=== PATIENT | female | born 1985 | race American Indian/Alaskan Native ===

== ENCOUNTER 2022-02-17 07:15 | Inpatient (IN) | payer OTHER ==
[2022-02-17] MEDS ORDERED: LIDOCAINE (2%) 20 MG/1 ML VIAL 20 ML MDV INFILTRATI ONE (07:23)
[2022-02-17] MEDS ORDERED: fentaNYL 100 MCG/2 ML INJ IV SCH (07:30)
[2022-02-17] MEDS ORDERED: LACTATED RINGERS 1,000 ML IV SCH (08:00)
[2022-02-17] MEDS ORDERED: LIDOCAINE (2%) 20 MG/1 ML VIAL 20 ML MDV INFILTRATI SCH (08:00)
[2022-02-17] MEDS ORDERED: ACETAMINOPHEN 325 MG TAB PO PRN (08:03)
--- NOTE | 2022-02-17 08:08 | History and Physical Report ---
History of Present Illness Date of examination: 02/17/22 Date of admission: 02/17/22 07:15 Chief complaint: contractions History of present illness: Pt is a 36 year old OBDULIO 02/19/22 at 39w5d who presents with contractions for two hours, complete dilation and bulging bag of membranes. She reports having care in [facility] that has been uncomplicated but her records are not available for review. Her GBS status is unknown. Past History Past Medical History: no pertinent history Past Surgical History: no surgical history Family/Genetic History: none Social history: no significant social history - Obstetrical History Expected Date of Delivery: 02/19/22 Actual Gestation: 39 Week(s) 5 Day(s) : 3 Para: 2 Hx # Term Pregnancies: 1 Number of Pregnancies: 1 Spontaneous Abortions: 0 Induced : 0 Number of Living Children: 2 Medications and Allergies Allergies Allergy/AdvReac Type Severity Reaction Status Date / Time ibuprofen [From Motrin] Allergy Hives Verified 02/17/22 07:39 naproxen Allergy Itching Verified 02/17/22 07:39 acetaminophen [From Tylenol] AdvReac Hives Verified 02/17/22 07:39 Active Meds: Active Medications Butorphanol Tartrate (Butorphanol 2 Mg/1 Ml Inj) 1 mg IV Q2H PRN PRN Reason: Pain, Moderate(4-6) LABOR PAIN Carboprost Tromethamine (Carboprost Tromethamine 250 Mcg/1 Ml Inj) 250 mcg IM ONCE PRN PRN Reason: Uterine Bleeding Ephedrine Sulfate (Ephedrine Sulfate 50 Mg/1 Ml Inj) 10 mg IV Q2M PRN PRN Reason: Hypotension Fentanyl (Fentanyl 100 Mcg/2 Ml Inj) 100 mcg IV ONCE ONE Stop: 02/17/22 07:42 Fentanyl (Fentanyl 100 Mcg/2 Ml Inj) 100 mcg IV Q2H PRN PRN Reason: Pain,Severe (7-10) LABOR PAIN Oxytocin/Sodium Chloride (Pitocin/Ns 30 Unit/500ml) 30 units in 500 mls @ 2 mls/hr IV TITR YASMINE; Protocol Lactated Ringer's (Lactated Ringers) 1,000 mls @ 125 mls/hr IV DIRECT YASMINE Oxytocin/Sodium Chloride (Pitocin/Ns 30 Unit/500ml) 30 units in 500 mls @ 40 mls/hr IV TITR YASMINE; Protocol Lidocaine (Lidocaine (2%) 20 Mg/1 Ml Vial 20 Ml Mdv) 20 ml INFILTRATI ONCE ONE Stop: 02/17/22 08:04 Loperamide HCl (Loperamide 2 Mg Cap) 2 mg PO ONCE PRN PRN Reason: give with Hemabate Methylergonovine Maleate (Methylergonovine Maleate 0.2 Mg/Ml Vial) 0.2 mg IM ONCE PRN PRN Reason: Uterine Bleeding Mineral Oil (Mineral Oil 30 Ml Oral Liqd) 30 ml PO QHS PRN PRN Reason: Constipation Misoprostol (Misoprostol 200 Mcg Tab) 800 mcg OH ONCE PRN PRN Reason: Uterine Bleeding Naloxone HCl (Naloxone 0.4 Mg/1 Ml Inj) 0.1 mg IV Q2MIN PRN PRN Reason: Res Rate </= 8 or 02 SAT < 92% Ondansetron HCl (Ondansetron 4 Mg/2 Ml Inj) 4 mg IV Q8H PRN PRN Reason: Nausea And Vomiting Oxytocin (Oxytocin 10 Unit/1 Ml Inj) 10 unit IM ONCE PRN PRN Reason: Uterine Bleeding Terbutaline Sulfate (Terbutaline 1 Mg/1 Ml Inj) 0.25 mg SUB-Q ONCE PRN PRN Reason: Hyperstimulation/Hypertonicity Review of Systems All systems: negative - Vital Signs Vital signs: Vital Signs Pulse BP 80 120/76 02/17/22 07:34 02/17/22 07:34 Temp Pulse Resp BP Pulse Ox 96 H 122/76 02/17/22 08:04 02/17/22 08:04 - Physical Exam Breasts: Positive: deferred Abdomen: Positive: soft (gravid ) Uterus: Positive: enlarged (gravid ) Results All other labs normal. Assessment and Plan A: IUP at 39w5d Second Stage Labor No Care in [place], records unavailable GBS unknown P: Admit to labor and delivery Routine care Closely monitor maternal and status
--- NOTE | 2022-02-17 08:19 | Procedure Note ---
OB Delivery Note - Delivery Date of Delivery: 02/17/22 Surgeon: CELESTE QUEEN Estimated blood loss: other (400 mL) - Vaginal Delivery presentation: vertex Delivery position: OA Intrapartum events: precipitous labor- <3hr Delivery induction: none Delivery monitor: none Route of delivery: Delivery placenta: spontaneous Episiotomy: none Delivery laceration: 2nd degree (repaired with 2-0 Vicryl ) Delivery repair: vicryl Anesthesia: local Delivery comments: When composition tile layer provider en route, pt delivered viable female via spontaneous vaginal delivery under no anesthesia. bulb suctioned at delivery, cord clamped and cut and handed to NICU staff in attendance. Cord blood collected by Lacey Bae CNM. When provider arrived, placenta was delivered. Vagina and perineum explored. Second degree perineal laceration repaired with 2-0 Vicryl in a standard fashion under local anesthesia. Vaginal prolapse noted. Bladder drained of 100 mL urine. EBL 400 mL. - A at 1 minute: 8 at 5 minutes: 9 Infant Gender: Female (3400g (7lb 8oz) @ 0715 am)
[2022-02-17] MEDS ORDERED: TERBUTALINE 1 MG/1 ML INJ SUB-Q PRN (08:30)
[2022-02-17] MEDS ORDERED: ePHEDrine SULFATE 50 MG/1 ML INJ IV PRN (08:30)
[2022-02-17] MEDS ORDERED: CARBOPROST TROMETHAMINE 250 MCG/1 ML INJ IM PRN (08:30)
[2022-02-17] MEDS ORDERED: BUTORPHANOL 2 MG/1 ML INJ IV PRN (08:30)
[2022-02-17] MEDS ORDERED: ONDANSETRON 4 MG/2 ML INJ IV PRN ×2 (08:30→12:18)
[2022-02-17] MEDS ORDERED: OXYTOCIN DRIP 30 UNITS/500 ML BAG IV SCH ×2 (08:30→09:00)
[2022-02-17] MEDS ORDERED: NALOXONE 0.4 MG/1 ML INJ IV PRN (08:30)
[2022-02-17] MEDS ORDERED: OXYTOCIN 10 UNIT/1 ML INJ IM PRN (08:30)
[2022-02-17] MEDS ORDERED: miSOPROStol 200 MCG TAB PR PRN (09:00)
[2022-02-17] MEDS ORDERED: LOPERAMIDE 2 MG CAP PO PRN (09:00)
[2022-02-17] MEDS ORDERED: METHYLERGONOVINE MALEATE 0.2 MG/ML VIAL IM PRN (09:00)
[2022-02-17] MEDS ORDERED: MINERAL OIL 30 ML ORAL LIQD PO PRN (09:00)
[2022-02-17] MEDS ORDERED: fentaNYL 100 MCG/2 ML INJ IV PRN (10:00)
[2022-02-17] MEDS ORDERED: BENZOCAINE/MENTHOL 20/0.5% TOP SPRAY 56 GM TP PRN (12:18)
[2022-02-17] MEDS ORDERED: diphenhydrAMINE 25 MG CAP PO PRN (12:18)
[2022-02-17] MEDS ORDERED: MAGNESIUM HYDROXIDE (MOM) ORAL LIQD UDC PO PRN (12:18)
[2022-02-17] MEDS ORDERED: PROMETHAZINE 25 MG RECT SUPP PR PRN (12:18)
[2022-02-17] MEDS ORDERED: PROMETHAZINE 25 MG TAB PO PRN (12:18)
[2022-02-17] MEDS ORDERED: LANOLIN/ZINC/DIMETHICONE (LANSINOH) 7 GM TP PRN ×2 (12:18)
[2022-02-17 13:12] LABS: Hematocrit 35.6 % (30.3-42.9); Hemoglobin 11.8 gm/dl (10.1-14.3); Mean Corpuscular HGB Conc 33 % (30-34); Mean Corpuscular Volume 94 fl (79-97); Platelet Count 171 K/mm3 (140-440); Red Blood Count 3.77 M/mm3 (3.65-5.03); Red Cell Distribution Width 14.2 % (13.2-15.2)
[2022-02-17] MEDS: oxyCODONE 5 MG TAB PO PRN ×2 (13:29→21:01)
[2022-02-17] MEDS: DOCUSATE SODIUM 100 MG CAP PO SCH ×2 (14:06→21:02)
[2022-02-17 14:13] LABS: Hepatitis C Virus Antibody Non-Reactive (NonReactive)
[2022-02-17 18:32] LABS: Basophils % (Manual) 0 % (0.0-1.8); Eosinophils % (Manual) 0 % (0.0-4.3); Monocytes % (Manual) 0 % (0.0-7.3); RBC Morphology Normal; Total Cells Counted 100
[2022-02-17 18:33] LABS: Platelet Estimate Consistent w Auto
[2022-02-17] MEDS: WITCH HAZEL/ GLYCERIN PAD TP PRN (21:06)
[2022-02-17 21:18] LABS: Hemoglobin 10.9 gm/dl (10.1-14.3)
[2022-02-18] MEDS: oxyCODONE 5 MG TAB PO PRN (00:37)
[2022-02-18] MEDS ORDERED: TETANUS,DIPH,PERTUSS(ACELL) VACCINE 0.5 ML SYRINGE IM ONE (08:23)
[2022-02-18] MEDS ORDERED: MEASLES, MUMPS & RUBELLA 12,500 UNIT/0.5 ML VACCINE SUB-Q ONE (08:23)
--- NOTE | 2022-02-18 08:26 | Progress Note ---
Assessment and Plan - Patient Problems (1) Vaginal delivery Current Visit: Yes Status: Acute Plan to address problem: The patient is doing well Discharge home (2) Active labor at term Current Visit: Yes Status: Acute Subjective - Subjective Date of service: 02/18/22 Interval history: The patient is without any significant complaints. She reports improvement in her pain management. Patient reports: appetite normal, voiding normally, pain well controlled [place]: doing well Objective - Vital Signs Latest vital signs: Vital Signs Temp Pulse Resp BP BP Pulse Ox Pulse Ox 02/18/22 00:11 98.1 F 60 20 126/59 96 02/17/22 22:00 99 02/17/22 19:53 98.3 F 72 20 101/54 99 02/17/22 18:24 98.3 F 67 18 112/65 100 02/17/22 13:29 16 02/17/22 11:50 97.9 F 66 16 117/59 97 99 02/17/22 10:49 58 L 111/68 02/17/22 10:47 58 L 97 02/17/22 10:42 58 L 99 02/17/22 10:37 58 L 97 02/17/22 10:34 59 L 109/69 02/17/22 10:32 56 L 99 02/17/22 10:27 63 99 02/17/22 10:22 67 98 02/17/22 10:19 56 L 117/74 02/17/22 10:17 60 98 02/17/22 10:12 68 97 02/17/22 10:07 58 L 98 02/17/22 10:04 60 116/74 02/17/22 10:02 58 L 99 02/17/22 09:57 65 97 02/17/22 09:52 61 97 02/17/22 09:49 57 L 116/67 02/17/22 09:47 60 98 02/17/22 09:42 68 98 02/17/22 09:37 64 99 02/17/22 09:34 61 119/67 02/17/22 09:32 60 98 02/17/22 09:27 67 98 02/17/22 09:22 58 L 100 02/17/22 09:19 65 118/65 02/17/22 09:17 58 L 98 02/17/22 09:12 62 99 02/17/22 09:07 59 L 98 08/14/22 09:04 65 122/66 02/17/22 09:02 62 99 02/17/22 08:56 65 98 02/17/22 08:52 62 99 02/17/22 08:49 69 123/67 02/17/22 08:47 70 98 02/17/22 08:42 73 99 02/17/22 08:37 70 98 02/17/22 08:34 190 H 109/56 02/17/22 08:32 69 98 02/17/22 08:27 60 97 Intake and Output 02/17/22 02/18/22 02/18/22 22:59 06:59 14:59 Output Total 1000 Balance -1000 Output: Urine 1000 Void 1000 Other: Total, Output Amount 400 # Voids Void 1 - Exam Uterus: Present: normal, firm - Labs Labs: Abnormal lab results 02/17/22 Range/Units 12:25 WBC 15.4 H (4.5-11.0) K/mm3 Seg Neuts % (Manual) 92.0 H (40.0-70.0) % Lymphocytes % (Manual) 2.0 L (13.4-35.0) % Seg Neutrophils # Man 14.2 H (1.8-7.7) K/mm3 Lymphocytes # (Manual) 0.3 L (1.2-5.4) K/mm3
--- NOTE | 2022-02-18 08:26 | Discharge Summary ---
Providers - Providers Date of Admission: 02/17/22 07:15 Date of discharge: 02/18/22 Attending physician: CELESTE QUEEN 02/17/22 12:18 Consult to [facility] [CONS] Routine Reason For Exam: assistance with , SNS Primary care physician: CELESTE QUEEN Hospitalization Reason for admission: active labor Delivery: Discharge diagnosis: IUP at term delivered Hospital course: The patient was admitted in active labor with advanced cervical dilatation. She had a spontaneous vaginal delivery. Her course was uneventful. Condition at discharge: Good Disposition: 01 HOME / SELF CARE / HOMELESS - Discharge Diagnoses (1) Vaginal delivery Status: Acute (2) Active labor at term Status: Acute Plan - Discharge Medications Prescriptions: Ferrous Sulfate [Feosol 325 MG tab] 325 mg PO BID #60 tablet oxyCODONE [roxiCODONE] 5 mg PO Q6HR PRN #30 tablet PRN Reason: Pain - Provider Discharge Summary Activity: no sex for 6 weeks, no heavy lifting 4 weeks, no strenuous exercise Diet: routine Instructions: routine Additional instructions: [] Smoking cessation referral if applicable(refer to patient education folder for contact #) [] Refer to [facility] Booklet Call your doctor immediately for: * Fever > 100.5 * Heavy vaginal bleeding ( >1 pad per hour) * Severe persistent headache * Shortness of breath * Reddened, hot, painful area to leg or breast * Schedule visit in 4 weeks - Follow up plan
[2022-02-18 09:25] VITALS: BP 113/68
[2022-02-18] MEDS: DOCUSATE SODIUM 100 MG CAP PO SCH (10:00)
[2022-02-18 12:07] LABS: Mucus,Urine FEW /HPF
[2022-02-18 12:19] LABS: Amphetamine Screen,Urine Negative; Benzodiazepines Screen,Urine Negative; Cannabinoid Screen,Urine Negative; Cocaine Screen,Urine Negative; Methadone Screen,Urine Negative; Opiate Screen,Urine Negative
[2022-02-18 12:23] LABS: Bilirubin,Urine Negative (Negative); Blood,Urine Large (Negative); Color,Urine Straw (Yellow); Urobilinogen,Urine < 2.0 mg/dL (<2.0)
[2022-02-18] MEDS: WITCH HAZEL/ GLYCERIN PAD TP PRN (15:42)
== END 2022-02-18 15:47 | disposition home or self-care (01) | DRG 775 ==
LOC: LD 07:15 → OB 11:21
PROVIDERS: ADMIT Obstetrics & Gynecology; ATTEND Obstetrics & Gynecology
PROC: 10E0XZZ Delivery of Products of Conception, External Approach (ICD-10-PCS; principal; 2022-02-17)
PROC: 0KQM0ZZ Repair Perineum Muscle, Open Approach (ICD-10-PCS; 2022-02-17)
PROC: 3E0234Z Introduction of Serum, Toxoid and Vaccine into Muscle, Percutaneous Approach (ICD-10-PCS; 2022-02-18)
PROC: 3E0134Z Introduction of Serum, Toxoid and Vaccine into Subcutaneous Tissue, Percutaneous Approach (ICD-10-PCS; 2022-02-18)
DX: O62.3 Precipitate labor (principal); O70.1 Second degree perineal laceration during delivery; Z37.0 Single live birth; Z3A.39 39 weeks gestation of pregnancy; Z23 Encounter for immunization; Z20.822 Contact with and (suspected) exposure to COVID-19
CPT/HCPCS: 36415; 80307; 81001; 85007; 85014; 85018; 85025; 86592; 86706; 86762; 86803; 86850; 86900; 86901; 87086; 87806; 88307; G0378; J3490; U0003